=== PATIENT | male | born 1980 | race Caucasian/White ===

== ENCOUNTER 2016-11-06 20:08 | Emergency (ER) | payer MEDICAID ==
[2016-11-06 20:26] VITALS: BP 143/84
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
--- NOTE | 2016-11-07 09:10 | CR ---
Ankle Min 3V Lt INDICATION: pain lat mal FINDINGS: 11 mm curvilinear calcification adjacent to the posterior malleolus is indeterminant for a cute or chronic fracture; clinically correlate with patient point tenderness. Ankle mortise is intac t. Exam otherwise negative.
== END 2016-11-06 22:14 | disposition home or self-care (01) ==
LOC: JP.ED 20:08
DX: S93.402A Sprain of unspecified ligament of left ankle, initial encounter (principal); F17.210 Nicotine dependence, cigarettes, uncomplicated; K21.9 Gastro-esophageal reflux disease without esophagitis; Z79.899 Other long term (current) drug therapy; Z90.49 Acquired absence of other specified parts of digestive tract; W01.0XXA Fall on same level from slipping, tripping and stumbling without subsequent striking against object, initial encounter
CPT/HCPCS: 73610-26-LT; 73610-LT; 99283; 99284

== ENCOUNTER 2017-11-13 19:37 | Emergency (ER) | payer MEDICAID ==
[2017-11-13 20:10] VITALS: BP 122/88
[2017-11-13] MEDS ORDERED: Albuterol/Ipratropium 3.0-0.5 MG/3 ML Neb Soln NEB ONE (20:35)
--- NOTE | 2017-11-13 20:45 | EDM.PDOC ---
ED HPI GENERAL MEDICAL PROBLEM - General Chief Complaint: Respiratory Problem Stated Complaint: ILLNESS Time Seen by Provider: 11/13/17 20:20 Source of Information: Reports: Patient History Limitations: Reports: No Limitations - History of Present Illness INITIAL COMMENTS - FREE TEXT/NARRATIVE: 37-year-old male with a cough and cold for the last several days, shortness of breath, pressure in his right ear, scratchy throat and nasal congestion. No significant fevers or chills. No nausea or vomiting. Onset: Gradual (Over the past 3-4 days) Severity: Mild Associated Symptoms: Reports: Cough, Shortness of Breath. Denies: Fever/Chills , Headaches, Nausea/Vomiting, Weakness Back Pain Score (Numeric/FACES): 4 - Related Data Allergies Allergy/AdvReac Type Severity Reaction Status Date / Time No Known Allergies Allergy Verified 11/13/17 20:19 Home Meds: Home Meds Omeprazole [Prilosec] 20 mg PO DAILY 02/01/15 [History] Ibuprofen 600 mg PO ASDIRECTED 08/26/16 [History] Past Medical History Gastrointestinal History: Reports: Chronic Diarrhea, Other (See Below) Other Gastrointestinal History: acid reflux Musculoskeletal History: Reports: Fracture Other Musculoskeletal History: thumb clavicle fx - Infectious Disease History Infectious Disease History: Reports: Chicken Pox - Past Surgical History GI Surgical History: Reports: Appendectomy Social & Family History - Tobacco Use Smoking Status *Q: Current Every Day Smoker Years of Tobacco use: 19 Packs/Tins Daily: 1 Used Tobacco, but Quit: No Second Hand Smoke Exposure: Yes - Caffeine Use Caffeine Use: Reports: Energy Drinks, Soda - Alcohol Use Days Per Week of Alcohol Use: 0 Number of Drinks Per Day: 3 Total Drinks Per Week: 0 - Recreational Drug Use Recreational Drug Use: No Drug Use in Last 12 Months: No Recreational Drug Type: Reports: Marijuana/Hashish, Methamphetamine Recreational Drug Use Frequency: Not Used In Over 6 Months ED ROS GENERAL - Review of Systems Review Of Systems: See Below Constitutional: Reports: Malaise. Denies: Fever, Chills HEENT: Reports: Ear Pain, Throat Pain, Other (Recent tooth extraction) Respiratory: Reports: Shortness of Breath (On the right side), Cough, Sputum ( Some sputum production in the mornings) Cardiovascular: Denies: Chest Pain GI/Abdominal: Denies: Abdominal Pain, Nausea, Vomiting Skin: Reports: No Symptoms Neurological: Denies: Headache ED EXAM, GENERAL - Physical Exam Exam: See Below Exam Limited By: No Limitations General Appearance: Alert, No Apparent Distress Eye Exam: Bilateral Eye: Normal Inspection Ears: Other (He has serous fluid behind the right tympanic membrane with slight redness, the left is clear) Throat/Mouth: Other (Uvulitis slightly swollen with a small aphthous ulcer) Head: Atraumatic Neck: No: Lymphadenopathy (R), Lymphadenopathy (L) Respiratory/Chest: No Respiratory Distress, Rhonchi, Wheezing (Diffuse rhonchi and wheezing bilaterally) Cardiovascular: Normal Peripheral Pulses Neurological: Alert, Oriented Psychiatric: Normal Affect, Normal Mood Skin Exam: Warm, Dry Course - Vital Signs Last Recorded V/S: Last Vital Signs Temp 96.0 F 11/13/17 20:25 Pulse 106 H 11/13/17 20:25 Resp 16 11/13/17 20:25 BP 122/88 11/13/17 20:25 Pulse Ox 97 11/13/17 20:25 - Orders/Labs/Meds Orders: Active Orders 24 hr Category Date Time Status RT Aerosol Therapy [RC] ASDIRECTED Care 11/13/17 20:35 Active Meds: Medications Discontinued Medications Generic Name Dose Route Start Last Admin Trade Name Freq PRN Reason Stop Dose Admin Albuterol/Ipratropium 3 ml 11/13/17 20:35 11/13/17 20:44 Duoneb 3.0-0.5 Mg/3 Ml NEB 11/13/17 20:36 3 ml ONETIME ONE Administration - Re-Assessments/Exams Free Text/Narrative Re-Assessment/Exam: 11/13/17 20:43 Patient was given a DuoNeb. This gave him some subjective and objective improvement. He'll be discharged with an albuterol inhaler to use 2 puffs every 3-4 hours as needed, along with amoxicillin for the right ear. He understands that most of his symptoms are likely viral and will improve on their own, he can return if worsening. Departure - Departure Time of Disposition: 20:59 Disposition: Home, Self-Care 01 Condition: Good Clinical Impression: Viral URI with cough Otitis media Qualifiers: Otitis media type: suppurative Chronicity: acute Laterality: right Recurrence: not specified as recurrent Spontaneous tympanic membrane rupture: without spontaneous rupture Qualified Code(s): H66.001 - Acute suppurative otitis media without spontaneous rupture of ear drum, right ear - Discharge Information Instructions: Viral Respiratory Infection Referrals: PCP,None [Primary Care Provider] - Forms: ED Department Discharge Care Plan Goals: Take antibiotic as prescribed for at least 7 days, and use inhaler every 3-4 hours to help with breathing. Return anytime if worsening, especially difficulty breathing. - My Orders Last 24 Hours: My Active Orders 11/13/17 20:35 RT Aerosol Therapy [RC] ASDIRECTED - Assessment/Plan Last 24 Hours: My Active Orders 11/13/17 20:35 RT Aerosol Therapy [RC] ASDIRECTED
== END 2017-11-13 20:59 | disposition home or self-care (01) ==
LOC: JP.ED 19:37
DX: J06.9 Acute upper respiratory infection, unspecified (principal); H66.001 Acute suppurative otitis media without spontaneous rupture of ear drum, right ear; K21.9 Gastro-esophageal reflux disease without esophagitis; F17.210 Nicotine dependence, cigarettes, uncomplicated; Z79.899 Other long term (current) drug therapy
CPT/HCPCS: 94640; 99284; J7620

== ENCOUNTER 2020-07-19 11:04 | Emergency (ER) | payer SELFPAY ==
[2020-07-19 11:24] VITALS: BP 123/72; PULSE 92
--- NOTE | 2020-07-19 11:49 | EDM.PDOC ---
ED HPI GENERAL MEDICAL PROBLEM - General Chief Complaint: ENT Problem Stated Complaint: TOOTH PAIN Time Seen by Provider: 07/19/20 11:30 Source of Information: Reports: Patient History Limitations: Reports: No Limitations - History of Present Illness INITIAL COMMENTS - FREE TEXT/NARRATIVE: 39-year-old male with left maxillary pain for the last 2 days, no swelling or fever. Neutral temperature water seems to help. He flossed between his teeth and nothing was found. He is going to try to get into the dentist earlier this week but wants to be on an antibiotic which I think is reasonable. Onset: Gradual Duration: Day(s): (2 days of symptoms) Location: Reports: Other (Left second molar on the mandible) Associated Symptoms: Reports: No Other Symptoms - Related Data Allergies Allergy/AdvReac Type Severity Reaction Status Date / Time No Known Allergies Allergy Verified 11/13/17 20:19 Home Meds: Home Meds Omeprazole [Prilosec] 20 mg PO DAILY 02/01/15 [History] Ibuprofen 600 mg PO ASDIRECTED 08/26/16 [History] Past Medical History Respiratory History: Reports: Other (See Below) Other Respiratory History: chronic bronchitis years ago Gastrointestinal History: Reports: Other (See Below) Other Gastrointestinal History: acid reflux Musculoskeletal History: Reports: Fracture Other Musculoskeletal History: left thumb, a clavicle fx - Infectious Disease History Infectious Disease History: Reports: Chicken Pox - Past Surgical History GI Surgical History: Reports: Appendectomy Social & Family History - Family History Family Medical History: No Pertinent Family History - Tobacco Use Tobacco Use Status *Q: Current Every Day Tobacco User Years of Tobacco use: 20 Packs/Tins Daily: 0.5 Used Tobacco, but Quit: No Second Hand Smoke Exposure: No - Caffeine Use Caffeine Use: Reports: Energy Drinks, Soda - Recreational Drug Use Recreational Drug Use: No ED ROS ENT - Review of Systems Review Of Systems: See Below Constitutional: Denies: Fever, Chills HEENT: Reports: Dental Pain Respiratory: Denies: Shortness of Breath Cardiovascular: Denies: Chest Pain GI/Abdominal: Denies: Abdominal Pain, Nausea, Vomiting ED EXAM, ENT - Physical Exam Exam: See Below Exam Limited By: No Limitations General Appearance: Alert, No Apparent Distress Mouth/Throat: Other (Dental exam reveals numerous molars with fillings and past dental work. The second molar on the left mandible is somewhat tender to percussion but there is no inflammatory reaction to the gingiva or swelling) Course - Vital Signs Last Recorded V/S: Last Vital Signs Temp 96.8 F L 07/19/20 11:22 Pulse 92 07/19/20 11:22 Resp 16 07/19/20 11:22 BP 123/72 07/19/20 11:22 Pulse Ox 97 07/19/20 11:22 - Re-Assessments/Exams Free Text/Narrative Re-Assessment/Exam: 07/19/20 11:47 Patient will be placed on penicillin 4 times daily for 10 days, given 20 Toradol to take every 6 hours and should call the dentist tomorrow to get worked in for dental x-rays. Departure - Departure Time of Disposition: 12:24 Disposition: Home, Self-Care 01 Clinical Impression: Dental abscess - Discharge Information Instructions: Dental Abscess Referrals: PCP,None [Primary Care Provider] - Forms: ED Department Discharge Care Plan Goals: Take antibiotic 4 times a day until seen by dentist, take 1 ketorolac every 6 hours for pain and add Tylenol as well if needed. Sepsis Event Note (ED) - Evaluation Sepsis Screening Result: No Definite Risk - Focused Exam Vital Signs: Vital Signs Temp Pulse Resp BP Pulse Ox 07/19/20 11:22 96.8 F L 92 16 123/72 97
== END 2020-07-19 12:24 | disposition home or self-care (01) ==
LOC: JP.ED 11:04
DX: K04.7 Periapical abscess without sinus (principal); K21.9 Gastro-esophageal reflux disease without esophagitis; F17.210 Nicotine dependence, cigarettes, uncomplicated; Z79.899 Other long term (current) drug therapy
CPT/HCPCS: 99282

== ENCOUNTER 2020-12-27 11:04 | Emergency (ER) | payer SELFPAY | END 2020-12-27 14:52 | disposition left against medical advice (07) | LOC: JP.ED 11:04 | DX: Z53.21 Procedure and treatment not carried out due to patient leaving prior to being seen by health care provider (principal) ==

== ENCOUNTER 2024-05-26 11:36 | Emergency (ER) | payer OTHER ==
[2024-05-26 13:31] VITALS: BP 122/83; PULSE 101
== END 2024-05-26 13:58 | disposition home or self-care (01) ==
LOC: JP.ED 11:36
DX: J01.90 Acute sinusitis, unspecified (principal); Z90.49 Acquired absence of other specified parts of digestive tract; Z88.5 Allergy status to narcotic agent
CPT/HCPCS: 99283